=== PATIENT | male | born 1935 | race Caucasian/White ===

== ENCOUNTER 2022-03-10 06:10 | Day surgery (SDC) | payer MEDICARE, OTHER ==
[~2022-03-10] VITALS: Ht 177.8 cm; Wt 81.8 kg
[2022-03-10] MEDS ORDERED: LIDOCAINE 2% 11 ML JELLY TP ONE (06:11)
[2022-03-10] MEDS ORDERED: BENZOCAINE 20% 50 MCG/SPRAY 57 GM TP ONE (06:11)
[2022-03-10] MEDS ORDERED: LIDOCAINE 4% 50 ML SOLUTION TP ONE (06:11)
[2022-03-10] MEDS ORDERED: SODIUM CHLORIDE 0.9% 1,000 ML IV ONE (06:30)
[2022-03-10 06:42] LABS: COVID AG,FIA SOURCE NASOPHARYNGEAL
[2022-03-10] MEDS ORDERED: DOXY100C5 PO (06:44)
[2022-03-10] MEDS ORDERED: LIFI1DRO OU (06:44)
[2022-03-10] MEDS ORDERED: MIDAZOLAM HCL 2 MG/2 ML VIAL ONE (07:51)
[2022-03-10] MEDS ORDERED: FentaNYL CITRATE PF 100 MCG/2 ML VIAL ONE (07:52)
[2022-03-10] MEDS ORDERED: MethylPREDNISolone SOD SUCC 125 MG/2 ML VIAL IVP ONE (09:30)
[2022-03-10] MEDS ORDERED: MethylPREDNISolone SOD SUCC 125 MG/2 ML VIAL ONE (09:52)
[2022-03-10] MEDS ORDERED: OXYGEN THERAPY IH SCH (20:00)
== END 2022-03-10 11:05 | disposition home or self-care (01) ==
LOC: SURGERY 06:10
PROVIDERS: ATTEND Internal Medicine Critical Care Medicine
DX: J38.4 Edema of larynx (principal); B37.0 Candidal stomatitis; Z87.01 Personal history of pneumonia (recurrent); Z79.899 Other long term (current) drug therapy; Z20.822 Contact with and (suspected) exposure to COVID-19
CPT/HCPCS: 31623; 88112; 87101; 87220; 87070; 31624; 71045; 87015; 87426; 87206; J3010; J2250; J2930; Q9967; C9803; Z7610